=== PATIENT | female | born 1990 | race Caucasian/White ===

== ENCOUNTER → 2016-11-24 | Outpatient (CLI) | payer BC ==
--- NOTE | 2016-11-24 15:17 | US ---
EXAMINATION TYPE: US OB <= 14 wk fetus DATE OF EXAM: 11/24/2016 3:02 PM COMPARISON: NONE CLINICAL HISTORY: O36.5910 SMALL FOR DATES. Patient still nursing and LMP was sometime in August. EXAM PERFORMED: OBTA EXAM MEASUREMENTS: GESTATIONAL AGE / DATING Physician Established: not established Dates by LMP: unknown Dates by First Scan: [employer] Dates by Current Scan for: (12 weeks/2 days) EDC: 06/06/2017 MATERNAL ANATOMY Uterus: 10.9 x 9.5 x 7.7cm,wnl Right Ovary: 2.8 x 2.0 x 2.0cm, wnl Left Ovary:2.5 x 2.6 x 2.0cm, wnl Post CDS / Adnexa: wnl Presence of free fluid: no Presence of corpus luteal cyst: no Presence of subchorionic bleed: no GESTATION / SURVEY CRL: 5.7cm (12 weeks/2 days) MSD: wnl Yolk Sac (normal less than 6mm): not seen Heart Rate: 150 bpm Rhythm: Normal IUP: yes Nuchal Translucency 10-14wks (normal less than 3mm): 1mm Date of LMP: August 2016 Beta HcG (if available): not available IMPRESSION: Viable 12w2d IUP seen and appears wnl
== END | disposition home or self-care (01) ==
LOC: RADUSWWP 14:30
PROVIDERS: ATTEND Obstetrics & Gynecology
DX: O36.5910 Maternal care for other known or suspected poor fetal growth, first trimester, not applicable or unspecified (principal); Z3A.12 12 weeks gestation of pregnancy
CPT/HCPCS: 76801; 76813

== ENCOUNTER 2017-05-29 00:50 | Inpatient (IN) | payer BC ==
[2017-05-29] MEDS ORDERED: OXYTOCIN 10 UNIT/ML 1 ML VIAL IM PRN (02:15)
[2017-05-29] MEDS ORDERED: CARBOPROST TROMETHAMINE 250 MCG/ML 1 ML AMP IM PRN (02:15)
[2017-05-29] MEDS ORDERED: TERBUTALINE 1 MG/ML VIAL SQ PRN (02:15)
[2017-05-29] MEDS ORDERED: METHYLERGONOVINE 0.2 MG/ML 1 ML AMP IM PRN (02:15)
[2017-05-29] MEDS ORDERED: LIDOCAINE 1% (PF) 10 MG/ML (30 ML SDV) SQ PRN (02:15)
[2017-05-29 03:01] VITALS: BMI 31.1
[2017-05-29] MEDS: LACTATED RINGERS 1,000 ML IV SCH ×3 (03:11→20:23)
[2017-05-29 03:12] LABS: Basophils % (A) 0 %; CH 29.5; CHCM 33.9; Eosinophils # (A) 0.2 k/uL (0-0.7); Eosinophils % (A) 1 %; HDW 3.21; HGB 12.6 gm/dL (11.4-16.0); Luc # (Auto) 0.18; Luc % (Auto) 1; Lymphocytes # (A) 1.7 k/uL (1.0-4.8); Lymphocytes % (A) 13 %; MCH 30.6 pg (25.0-35.0); MCHC 34.9 g/dL (31.0-37.0); MCV 87.7 fL (80.0-100.0); Mean Platelet Volume 8.3; Monocytes # (A) 0.5 k/uL (0-1.0); Monocytes % (A) 4 %; Neutrophils # (A) 10.7 k/uL (1.3-7.7); Neutrophils % (A) 81 %; RBC 4.11 m/uL (3.80-5.40); RDW 14.1 % (11.5-15.5); WBC 13.2 k/uL (3.8-10.6)
[2017-05-29] MEDS ORDERED: BUPIVACAINE (PF) 0.25% 30 ML VIAL ONE (03:33)
[2017-05-29] MEDS ORDERED: SODIUM CHLORIDE 0.9% 100 ML BAG ONE (03:33)
[2017-05-29] MEDS ORDERED: fentaNYL (PF) 50 MCG/ML 5 ML AMP ONE (03:33)
--- NOTE | 2017-05-29 06:56 | P.HPOB ---
History of Present Illness H&P Date: 05/29/17 Chief Complaint: Contractions Kuldeep is a very pleasant 2 para 1 at 38-5/7 weeks that presents to labor and delivery with complaints of contractions. She states the contractions started about 9 PM and became stronger at which she presented to OB approximately 1 AM on 811. She denied loss of fluid or vaginal bleeding at that time and she did note good movement blood work revealed a blood type of O+ she was rubella immune her hepatitis B surface antigen was negative her HIV was negative and her group beta strep was negative in addition. Review of Systems Genitourinary: Reports as per HPI Menstruation: Reports as per HPI (Currently ) Past Medical History Past Medical History: No Reported History History of Any Multi-Drug Resistant Organisms: None Reported Past Surgical History: No Surgical Hx Reported Additional Past Surgical History / Comment(s): nose, eye Past Anesthesia/Blood Transfusion Reactions: No Reported Reaction Past Psychological History: No Psychological Hx Reported Smoking Status: Never smoker Past Alcohol Use History: None Reported Past Drug Use History: None Reported - Past Family History Mother Family Medical History: No Reported History Medications and Allergies Home Medications Medication Instructions Recorded Confirmed Type Lyn-Wbzv-Bndmc Acid 1 cap PO DAILY 02/24/16 03/13/16 History [-U Capsule] Allergies Allergy/AdvReac Type Severity Reaction Status Date / Time No Known Allergies Allergy Verified 05/29/17 01:17 Exam Osteopathic Statement: *. No significant issues noted on an osteopathic structural exam other than those noted in the History and Physical/Consult. - Vital Signs Vital signs: Vital Signs Temp Pulse Resp BP Pulse Ox 05/29/17 01:23 96.6 F L 69 18 138/92 97 Intake and Output 05/28/17 05/28/17 05/29/17 14:59 22:59 06:59 Intake Total 1000 Balance 1000 Intake: IV 1000 Lactated Ringers 1,000 ml 1000 @ 125 mls/hr IV .Q8H [facility] Rx#:[id number] Other: Weight 74.843 kg Patient Weight 05/29/17 06:59 Weight 74.843 kg - OBG Physical Exam Abdomen: Gravid and appropriate for gestational age Cervix: On admission her cervix was 5-6 cm per RN Results Result Diagrams: 05/29/17 02:45 Abnormal Lab Results - Last 24 Hours (Table) 05/29/17 Range/Units 02:45 WBC 13.2 H (3.8-10.6) k/uL Neutrophils # 10.7 H (1.3-7.7) k/uL Assessment and Plan (1) Active labor at term Status: Acute Plan: We will admit to labor and delivery for expectant management. Anticipate spontaneous vaginal delivery
[2017-05-29] MEDS ORDERED: ACETAMINOPHEN TAB 325 MG TAB PO PRN (08:33)
[2017-05-29] MEDS ORDERED: diphenhydrAMINE 50 MG/ML 1 ML VIAL IVP PRN ×2 (08:33)
[2017-05-29] MEDS ORDERED: SIMETHICONE 80 MG CHEWABLE PO PRN (08:33)
[2017-05-29] MEDS ORDERED: LANOLIN CREAM 5 GM TUBE TOPICAL PRN (08:33)
[2017-05-29] MEDS ORDERED: HYDROCORTISONE 2.5% RECTAL CREAM 30 GM TUBE RECTAL PRN (08:33)
[2017-05-29] MEDS ORDERED: diphenhydrAMINE 25 MG CAP PO PRN (08:33)
[2017-05-29] MEDS ORDERED: diphenhydrAMINE 50 MG CAP PO PRN (08:33)
[2017-05-29] MEDS ORDERED: WITCH HAZEL 1 EACH MED..PAD TOPICAL PRN (08:33)
[2017-05-29] MEDS ORDERED: BENZOCAINE/MENTHOL SPRAY 1 GM/SPRAY AEROSOL TOPICAL PRN (08:33)
[2017-05-29] MEDS ORDERED: ZOLPIDEM 5 MG TAB PO PRN (08:33)
[2017-05-29] MEDS ORDERED: Acetaminophen-Codeine 300-30mg TAB PO PRN (08:33)
--- NOTE | 2017-05-29 08:40 | P.PROBDLV ---
Vaginal Delivery Note - . Vaginal Delivery Note: Preoperative diagnosis intrauterine at 38 and 5, contractions Post operative diagnosis same Procedure normal spontaneous vaginal delivery, amniotomy, second degree midline laceration repair Surgeon Vandana Hurst D.OBlanca Anesthesia epidural, local with repair EBL less than 300 mL Findings male in occiput anterior position, loose nuchal delivered through, placenta delivered spontaneously without issue Complications none
[2017-05-29] MEDS: IBUPROFEN 600 MG TAB PO PRN ×3 (10:15→23:55)
[2017-05-29] MEDS ORDERED: BUPIVACAINE (PF) 0.25% 25 ML, fentaNYL (PF) 200 MCG in SODIUM CHLORIDE 0.9% 71 ML EPIDURAL ONE (12:48)
[2017-05-29] MEDS: SENNOSIDES-DOCUSATE SODIUM 1 EACH TAB PO SCH (20:12)
[2017-05-30] MEDS: SENNOSIDES-DOCUSATE SODIUM 1 EACH TAB PO SCH (08:28)
--- NOTE | 2017-05-30 08:40 | P.PNOBGVD ---
Subjective - Subjective Principal diagnosis: Status post normal spontaneous vaginal delivery Interval history: Kuldeep 26-year-old G2 now P2 presented to labor and delivery with complaints of contractions early Pedro morning she progressed to 8 cm, necessitating rupture of membranes and had a spontaneous vaginal delivery of a viable baby boy. She is currently day #1 and doing well. She is in bleeding and voiding without difficulty. She is tolerating a regular diet without nausea and vomiting. Her lochia is mild. She is breast-feeding without difficulty. Patient reports: Reports appetite normal, Reports voiding normally, Reports pain well controlled, Reports ambulating normally : doing well, nursing well Objective - Latest Vital Signs Latest vital signs: Vital Signs Temp Pulse Resp BP Pulse Ox 05/30/17 00:00 98.2 F 64 16 128/75 05/29/17 20:00 98.3 F 76 16 121/71 05/29/17 16:00 98.0 F 84 16 124/81 98 05/29/17 12:00 98.1 F 81 16 124/75 05/29/17 10:29 79 16 120/64 05/29/17 09:59 82 16 114/60 05/29/17 09:29 78 16 123/69 05/29/17 09:14 71 16 121/72 05/29/17 08:59 66 16 118/72 05/29/17 08:44 75 16 123/69 - Exam Extremities: Present: normal Abdomen: Present: normal appearance Uterus: Present: firm Assessment and Plan (1) Active labor at term Narrative/Plan: Expect discharge later this morning. Routine discharge instructions will be discussed with Kuldeep at discharge. She is to follow-up in 6 weeks at [facility] with Dr. Chu. Current Visit: No Status: Acute Code(s): [id number] - SNOMED Code(s): 40814420
--- NOTE | 2017-05-30 09:14 | P.DS ---
Providers Date of admission: 05/29/17 02:17 Expected date of discharge: 05/30/17 Attending physician: Janelle Chu Primary care physician: Janelle Chu - Discharge Diagnosis(es) (1) Active labor at term Kuldeep is a very pleasant 26-year-old that presented to labor and delivery on 811 with complaints of contractions on admission she was 5-6 cm and was admitted to labor and delivery. She progressed throughout labor to 8 cm and then her labor pattern stalled and contractions spaced. A meatus amniotomy was performed she progressed to complete and had a normal spontaneous vaginal delivery of a viable male infant. His weight was 8 lbs. 1 oz. at 8:15. Her's of 9 and 9 at one and 5 minutes respectively Current Visit: No Status: Acute Hospital Course: Name is very pleasant 26-year-old now that presented to labor and delivery with complaints of contractions she progressed in labor eventually having artificial rupture of membranes and then spontaneous vaginal delivery of a viable male infant at 8:15 AM. A second-degree midline laceration was noted after delivery this was repaired in usual fashion. Her course has been essentially benign she is doing well on day #1 and wishes to be discharged home. She is involuting and voiding without difficulty she denies complaints or concerns at this time. Patient Condition at Discharge: Good Plan - Discharge Summary New Discharge Prescriptions: No Action Dmy-Nsul-Ricbr Acid [-U Capsule] 1 cap PO DAILY Discharge Medication List Taz-Chuf-Bkgkt Acid [-U Capsule] 1 cap PO DAILY 02/24/16 [ History] Follow up Appointment(s)/Referral(s): Janelle Chu MD [Primary Care Provider] - 6 Weeks Discharge Disposition: HOME SELF-CARE
[2017-05-30] MEDS: IBUPROFEN 600 MG TAB PO PRN (11:22)
[2017-05-30 12:41] VITALS: BP 122/73; PULSE 89; RESP 20; TEMP 97.8
== END 2017-05-30 11:15 | disposition home or self-care (01) | DRG 775 ==
LOC: FBPOP 00:50 → 4FBP 02:17
PROVIDERS: ADMIT Obstetrics & Gynecology Obstetrics; ATTEND Obstetrics & Gynecology
PROC: 10E0XZZ Delivery of Products of Conception, External Approach (ICD-10-PCS; principal; 2017-05-29)
PROC: 0KQM0ZZ Repair Perineum Muscle, Open Approach (ICD-10-PCS; 2017-05-29)
PROC: 00HU33Z Insertion of Infusion Device into Spinal Canal, Percutaneous Approach (ICD-10-PCS; 2017-05-29)
PROC: 3E0R3CZ (ICD-10-PCS; 2017-05-29)
DX: O70.1 Second degree perineal laceration during delivery (principal); Z37.0 Single live birth; Z3A.38 38 weeks gestation of pregnancy; Z79.899 Other long term (current) drug therapy
CPT/HCPCS: 59025; 85025; 88307; 99213

== ENCOUNTER 2018-10-18 01:55 | Inpatient (IN) | payer BC ==
[2018-10-18] MEDS ORDERED: CARBOPROST TROMETHAMINE 250 MCG/ML 1 ML AMP IM PRN (03:27)
[2018-10-18] MEDS ORDERED: LIDOCAINE 1% INJ 10MG/ML (20 ML MDV) SQ PRN (03:27)
[2018-10-18] MEDS ORDERED: METHYLERGONOVINE 0.2 MG/ML 1 ML AMP IM PRN (03:27)
[2018-10-18] MEDS ORDERED: OXYTOCIN 10 UNIT/ML 1 ML VIAL IM PRN (03:27)
[2018-10-18] MEDS ORDERED: TERBUTALINE 1 MG/ML VIAL SQ PRN (03:27)
[2018-10-18 04:00] VITALS: BMI 30.6
[2018-10-18] MEDS: LACTATED RINGERS 1,000 ML IV SCH ×2 (04:02→10:24)
[2018-10-18 04:17] LABS: Basophils % (A) 0 %; Eosinophils # (A) 0.2 k/uL (0-0.7); Eosinophils % (A) 2 %; HCT 34.1 % (34.0-46.0); HGB 11.4 gm/dL (11.4-16.0); Lymphocytes # (A) 1.7 k/uL (1.0-4.8); Lymphocytes % (A) 14 %; MCH 28.8 pg (25.0-35.0); MCHC 33.5 g/dL (31.0-37.0); MCV 86.1 fL (80.0-100.0); Mean Platelet Volume 7.7; Monocytes # (A) 0.5 k/uL (0-1.0); Monocytes % (A) 4 %; Neutrophils # (A) 9.2 k/uL (1.3-7.7); Neutrophils % (A) 79 %; Platelet Count 254 k/uL (150-450); RBC 3.95 m/uL (3.80-5.40); RDW 14.1 % (11.5-15.5); WBC 11.6 k/uL (3.8-10.6)
[2018-10-18 04:22] LABS: Amorphous Sediment,Urine Rare /hpf; Appearance,Urine Clear (Clear); Bacteria,Urine Rare /hpf; Bilirubin,Urine Negative (Negative); Blood,Urine Trace (Negative); Color,Urine Light Yellow; Glucose,Urine (UA) Negative (Negative); Ketones,Urine Negative (Negative); Leukocyte Esterase,Urine Negative (Negative); Nitrite,Urine Negative (Negative); Protein,Urine Negative (Negative); RBC,Urine 6 /hpf (0-5); Specific Gravity,Urine 1.007 (1.001-1.035); Squamous Epithelial Cell,Urine 1 /hpf (0-4); Urobilinogen,Urine <2.0 mg/dL (<2.0); WBC,Urine 1 /hpf (0-5)
[2018-10-18 04:29] LABS: Uric Acid 2.4 mg/dL (3.7-7.4)
[2018-10-18] MEDS ORDERED: ROPIVACAINE 5MG/ML 20ML VIAL ONE (09:27)
[2018-10-18] MEDS ORDERED: SODIUM CHLORIDE 0.9% 100 ML BAG ONE (09:27)
[2018-10-18] MEDS ORDERED: fentaNYL (PF) 50 MCG/ML 5 ML AMP ONE (09:27)
[2018-10-18] MEDS ORDERED: BUTORPHANOL 1 MG/ML 1 ML VIAL IV PRN (09:35)
--- NOTE | 2018-10-18 09:40 | P.HPOB ---
History of Present Illness H&P Date: 10/18/18 Chief Complaint: 38-5/7 weeks, early labor The patient is a 28-year-old 3 para 2 scissors or 2 admitted at 38-5/7 weeks as established by last menstrual period and confirmed by 19 week ultrasound. She is admitted in early labor with some elevated blood pressures as well though they have become relatively normal during labor. Her has been otherwise uncomplicated and group B strep status is negative. On labor and delivery, all signs are reassuring. Obstetrical history: 3 para 2001 with 2 term vaginal deliveries without complications. Current statistics are listed in history of present illness. EDC of 10/27/2018 was established by last menstrual period and confirmed by 19 week ultrasound. Laboratory workup done traits of blood type of O+ with a negative antibody screen. Rubella status is immune. The remainder of the laboratory workup was within normal limits. One hour Glucola was normal and group B strep status is negative. Gynecologic history: Unremarkable with no history of any infections to include STDs. Review of Systems Review of systems is confined to history of present illness. Past Medical History Past Medical History: No Reported History History of Any Multi-Drug Resistant Organisms: None Reported Past Surgical History: No Surgical Hx Reported Additional Past Surgical History / Comment(s): nose, eye Past Anesthesia/Blood Transfusion Reactions: No Reported Reaction Past Psychological History: No Psychological Hx Reported Smoking Status: Never smoker Past Alcohol Use History: None Reported Past Drug Use History: None Reported - Past Family History Mother Family Medical History: No Reported History Medications and Allergies Home Medications Medication Instructions Recorded Confirmed Type Fnp-Ksxt-Oraif Acid 1 cap PO DAILY 02/24/16 10/18/18 History [-U Capsule] Allergies Allergy/AdvReac Type Severity Reaction Status Date / Time No Known Allergies Allergy Verified 10/18/18 01:58 Exam Vital Signs Temp Pulse Resp BP Pulse Ox 10/18/18 03:34 97 F L 88 16 132/86 99 10/18/18 03:17 97 F L 78 16 150/79 99 Intake and Output 10/17/18 10/18/18 10/18/18 22:59 06:59 14:59 Other: # Voids 1 Weight 73.482 kg In general, this is a well-developed, well-nourished white female in no acute distress. Her heart has a regular rhythm and rate without murmur. Her lungs are clear to auscultation bilaterally in all edmondson. Her abdomen is gravid, nondistended, has normal active bowel sounds, is soft, nontender, and without any palpable masses aside from the uterine fundus. Her extremities are without any cyanosis, clubbing, or edema and are nontender to palpation bilaterally. Digital cervical examination and straight discharged to be 5 cm dilated, 80% effaced, the vertex in presentation at -1-2 station. Artificial rupture of membranes is carried out demonstrating clear fluid. Results Result Diagrams: 10/18/18 03:55 Abnormal Lab Results - Last 24 Hours (Table) 10/18/18 10/18/18 10/18/18 Range/Units 03:30 03:55 03:55 WBC 11.6 H (3.8-10.6) k/uL Neutrophils # 9.2 H (1.3-7.7) k/uL Uric Acid 2.4 L (3.7-7.4) mg/dL Urine Blood Trace H (Negative) Urine RBC 6 H (0-5) /hpf Amorphous Sediment Rare H (None) /hpf Urine Bacteria Rare H (None) /hpf Assessment and Plan (1) induced hypertension Current Visit: Yes Status: Acute Code(s): O13.9 - GESTATIONAL HTN W/O SIGNIFICANT PROTEINURIA, UNSP TRIMESTER SNOMED Code(s): 72991994 (2) Active labor at term Current Visit: Yes Status: Acute Code(s): [id number] - SNOMED Code(s): 70274925 Plan: The patient has been admitted for active management of labor. Artificial rupture of membranes has been carried out for clear fluid. Given her relatively sparse contraction pattern, we have opted to proceed with placement of an epidural catheter at her request followed by Pitocin augmentation. She will continue to have close maternal and surveillance and expectant management will be practiced.
[2018-10-18] MEDS ORDERED: ROPIVACAINE 100 MG, fentaNYL (PF) 200 MCG in SODIUM CHLORIDE 0.9% 76 ML EPIDURAL ONE (09:55)
[2018-10-18] MEDS ORDERED: HYDROCORTISONE 2.5% RECTAL CREAM 30 GM TUBE RECTAL PRN (15:16)
[2018-10-18] MEDS ORDERED: HYDROcodone/APAP 7.5-325MG 1 EACH TAB PO PRN (15:16)
[2018-10-18] MEDS ORDERED: WITCH HAZEL 1 EACH MED..PAD TOPICAL PRN (15:16)
[2018-10-18] MEDS ORDERED: diphenhydrAMINE 50 MG/ML 1 ML VIAL IVP PRN ×2 (15:16)
[2018-10-18] MEDS ORDERED: ZOLPIDEM 5 MG TAB PO PRN (15:16)
[2018-10-18] MEDS ORDERED: HYDROcodone/APAP 5-325MG 1 EACH TAB PO PRN (15:16)
[2018-10-18] MEDS ORDERED: diphenhydrAMINE 25 MG CAP PO PRN (15:16)
[2018-10-18] MEDS ORDERED: diphenhydrAMINE 50 MG CAP PO PRN (15:16)
[2018-10-18] MEDS ORDERED: SIMETHICONE 80 MG CHEWABLE PO PRN (15:16)
[2018-10-18] MEDS ORDERED: BENZOCAINE/MENTHOL SPRAY 1 GM/SPRAY AEROSOL TOPICAL PRN (15:16)
[2018-10-18] MEDS ORDERED: LANOLIN CREAM 5 GM TUBE TOPICAL PRN (15:16)
--- NOTE | 2018-10-18 15:20 | P.PROBDLV ---
Vaginal Delivery Note - . Vaginal Delivery Note: The patient is a 28-year-old 3 para 2001 admitted at 38-5/7 weeks by good dating parameters. She is admitted in early labor with all signs reassuring aside from some elevated and initial blood pressures. Blood pressures normalized on labor and delivery of a while in labor. She underwent artificial rupture of membranes demonstrating clear fluid. She then had an epidural catheter placed for analgesia and had Pitocin augmentation started. She made good progress through the active phase of labor to complete and then pushed over the course of approximately 2-3 contractions to a normal spontaneous vaginal delivery of a viable 7 lbs. 15 oz. baby girl with Apgars of 8 at 1 minute and 9 at 5 minutes delivered in the direct occiput anterior position. There was a loose nuchal cord 1 which was reduced following delivery of the infant. The placenta was delivered spontaneously, intact, and grossly normal with a grossly normal centrally inserted three-vessel cord. There was a second-degree midline perineal laceration over the site of previous lacerations which was repaired in standard fashion using 3-0 chromic catgut without difficulty. Estimated blood loss for the case was approximately 300 mL. There are no complications. All sponge, instrument, and needle counts were correct. Both mother and infant are resting comfortably in recovery.
[2018-10-18] MEDS ORDERED: OXYTOCIN 20 UNITS/1000 ML NS 1,000 ML IV SCH (15:30)
[2018-10-18] MEDS: IBUPROFEN 600 MG TAB PO PRN (19:57)
[2018-10-18] MEDS: SENNOSIDES-DOCUSATE SODIUM 1 EACH TAB PO SCH (20:04)
[2018-10-19] MEDS: ACETAMINOPHEN TAB 325 MG TAB PO PRN ×2 (01:18→09:26)
[2018-10-19] MEDS: LACTATED RINGERS 1,000 ML IV SCH (02:35)
[2018-10-19] MEDS: IBUPROFEN 600 MG TAB PO PRN ×2 (06:30→14:28)
[2018-10-19] MEDS: SENNOSIDES-DOCUSATE SODIUM 1 EACH TAB PO SCH (09:23)
--- NOTE | 2018-10-19 10:23 | P.DS ---
Providers Date of admission: 10/18/18 03:27 Expected date of discharge: 10/19/18 Attending physician: Maurisio Thomas Primary care physician: Stated None Hospital Course: This is a 28-year-old white female 3 para 2002 EDC 10/27/2018 38-5/7 weeks' gestation. Patient presented in early spontaneous labor. Initial blood pressures were slightly elevated and patient did complain of a mild headache. All [facility] labs were checked and were within normal limits. otherwise unremarkable, blood type O positive, rubella status immune, group B strep cultures negative. Please see my dictated history and physical for details. Artificial amniorrhexis revealed clear fluid. Patient went on to deliver a liveborn female with scores of 8 and 9 at one and 5 minutes respectively. She did request and receive an epidural. Delivery was unremarkable, estimated blood loss 300 mL, small second-degree perineal laceration easily repaired. Infant weighed 7 lbs. 15 oz. or 12/22/2004 grams. Please see dictated delivery note for details. This morning the patient is doing well. She is voiding, ambulating and passing flatus without difficulty. Vital signs are stable and she is afebrile. Breast- feeding is going well. Breasts are not engorged. Perineal body is clean and dry. Fundus is firm and in the midline, symmetric and 18 week size. [employer] infant is doing well. Patient is being discharged home therefore in very good condition. She will follow-up in the office in 6 weeks. She is reminded no intercourse, tampons or douching. She will use [id number]-[id number] Advil or Aleve, or Motrin products as needed for pain. I've asked her to call with any fevers shakes or chills, foul smelling or copious lochia, with the passage of large blood clots, with any pain not alleviated by ezhb-nog-nusqrui products, or indeed with any concerns. Contraceptive options have been briefly reviewed and she will discuss this further with her primary ground defence officer. Patient Condition at Discharge: Good Plan - Discharge Summary New Discharge Prescriptions: No Action Wnk-Uzzt-Bydqb Acid [-U Capsule] 1 cap PO DAILY Discharge Medication List Gwt-Rlxf-Ibbpc Acid [-U Capsule] 1 cap PO DAILY 02/24/16 [ History] Follow up Appointment(s)/Referral(s): Maurisio Thomas MD [STAFF PHYSICIAN] - 6 Weeks Discharge Disposition: HOME SELF-CARE
[2018-10-19 11:36] VITALS: BP 134/87; PULSE 73; RESP 18; TEMP 97.8
== END 2018-10-19 15:40 | disposition home or self-care (01) | DRG 807 ==
LOC: FBPOP 01:55 → 4FBP 03:27
PROVIDERS: ADMIT Obstetrics & Gynecology; ATTEND Obstetrics & Gynecology
PROC: 10E0XZZ Delivery of Products of Conception, External Approach (ICD-10-PCS; principal; 2018-10-18)
PROC: 0KQM0ZZ Repair Perineum Muscle, Open Approach (ICD-10-PCS; 2018-10-18)
PROC: 00HU33Z Insertion of Infusion Device into Spinal Canal, Percutaneous Approach (ICD-10-PCS; 2018-10-18)
PROC: 3E0R3BZ Introduction of Anesthetic Agent into Spinal Canal, Percutaneous Approach (ICD-10-PCS; 2018-10-18)
DX: O13.4 Gestational [pregnancy-induced] hypertension without significant proteinuria, complicating childbirth (principal); Z37.0 Single live birth; O69.81X0 Labor and delivery complicated by cord around neck, without compression, not applicable or unspecified; O70.1 Second degree perineal laceration during delivery; O99.62 Diseases of the digestive system complicating childbirth; K21.9 Gastro-esophageal reflux disease without esophagitis; Z3A.38 38 weeks gestation of pregnancy
CPT/HCPCS: 59025; 81001; 84450; 84460; 84550; 85025; 86850; 86900; 86901; 99213

== ENCOUNTER 2020-09-12 19:32 | Outpatient (CLI) | payer BC, OTHER ==
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
[2020-09-12] MEDS: LACTATED RINGERS 1,000 ML IV SCH ×2 (20:35→21:16)
[2020-09-12 20:48] VITALS: BP 136/81; PULSE 58; RESP 16; TEMP 96.6
== END 2020-09-12 23:47 | disposition home or self-care (01) ==
LOC: FBPOP 19:32
PROVIDERS: ATTEND Obstetrics & Gynecology
DX: O26.893 Other specified pregnancy related conditions, third trimester (principal); T14.90XA Injury, unspecified, initial encounter; Z3A.34 34 weeks gestation of pregnancy
CPT/HCPCS: 59025; 96360; 96361; 99214

== ENCOUNTER 2020-09-23 19:43 | Outpatient (CLI) | payer BC, OTHER ==
[2020-09-23 21:07] LABS: Basophils % (A) 0 %; Eosinophils # (A) 0.2 k/uL (0-0.7); Eosinophils % (A) 1 %; HCT 41.1 % (34.0-46.0); HGB 13.3 gm/dL (11.4-16.0); Lymphocytes # (A) 1.4 k/uL (1.0-4.8); Lymphocytes % (A) 12 %; MCH 29.9 pg (25.0-35.0); MCHC 32.3 g/dL (31.0-37.0); MCV 92.7 fL (80.0-100.0); Mean Platelet Volume 7.9; Monocytes # (A) 0.4 k/uL (0-1.0); Monocytes % (A) 4 %; Neutrophils # (A) 9.3 k/uL (1.3-7.7); Neutrophils % (A) 82 %; Platelet Count 253 k/uL (150-450); RBC 4.44 m/uL (3.80-5.40); RDW 13.4 % (11.5-15.5); WBC 11.4 k/uL (3.8-10.6)
[2020-09-23 21:22] LABS: Uric Acid 1.9 mg/dL (3.7-7.4)
[2020-09-23 21:43] VITALS: BP 121/80; PULSE 75; RESP 16; TEMP 98.5
--- NOTE | 2020-11-29 07:56 | P.MSEPDOC ---
Presenting Problems - Arrival Data Date of Arrival on Unit: 09/23/20 Time of Arrival on Unit: 19:43 Mode of Transport: Ambulatory - Complaint OB-Reason for Admission/Chief Complaint: Possible Onset of Labor Comment: Patient presents to triage with contractions that started around 1600 this. afternoon, states they are about 3-4 minutes apart now. States she did have intercourse. around 1600. Patient denies leaking of fluid or vaginal bleeding, reports positive. movement. Medical History - Information : 4 Para: 3 Term: 3 : 0 Abortions: Spontaneous or Elective: 0 Number of Living Children: 3 - Gestational Age Gestational Age by BERRY (wks/days): 36 Weeks and 0 Days Review of Systems - Review of Systems Constitutional: No problems Breast: No problems ENT: No problems Cardiovascular: No problems Respiratory: No problems Gastrointestinal: No problems Genitourinary: No problems Musculoskeletal: No problems Neurological: No problems Skin: No problems Vital Signs - Temperature Temperature: 98.5 F Temperature Source: Temporal Artery Scan - Pulse Right Brachial Pulse Rate: 75 Pulse Assessment Method: Automatic Cuff - Respirations Respiratory Rate: 16 Oxygen Delivery Method: Room Air - Blood Pressure Right Arm Blood Pressure: 121/80 Blood Pressure Mean: 93 Blood Pressure Source: Automatic Cuff Medical Screen Scoring (Pre) - Cervical Exam Dilation: 1-3 cm = 1 Effacement: More than 50% = 2 Membranes: Intact - Uterine Contractions Frequency: > 5 minutes apart = 1 Duration: N/A Intensity: N/A - Maternal Vital Signs Maternal Temperature: N/A Maternal Blood Pressure: N/A Signs of Preeclampsia: N/A Maternal Respirations: N/A - Maternal Trauma Maternal Trauma: N/A - Assessment - Baby A Baseline FHR: 135 Heart Rate - NICHD Category: Category I (Normal) = 0 NST: Reactive Position: N/A Station: N/A - Total Score - Baby A Total Score - Baby A: 4 - Total Score - Baby B Total Score - Baby B: 4 - Total Score - Baby C Total Score - Baby C: 4 - Level of Risk - Baby A Level of Risk - Baby A: Low (0-5) - Level of Risk - Baby B Level of Risk - Baby B: Low (0-5) - Level of Risk - Baby C Level of Risk - Baby C: Low (0-5) Physician Notification (Pre) - Physician Notified Physician Notified Date: 09/23/20 Physician Notified Time: 21:15 New Order Received: Yes - Notification Comment Comment: RN reported that heart tones were catergory 1. Cervical exam was. unchanged. Patient reports feeling more comfortable. Patient instructed to go home,. drink water and rest, and pelvic rest until her Dr. visit on Thursday. Patient. verbalized understanding and is in agreement with plan of care. Disposition - Disposition OB Disposition: Admit, Physician follow up in office Discharge Date: 09/23/20 Discharge Time: 21:40 I agree with the RN Medical Screening Exam: Yes Case reviewed; plan agreed upon as documented in EMR&OBIX.: Yes Comments: Patient was neither seen nor examined by me. Diagnosis: FALSE LABOR BEFORE 37 COMPLETED WEEKS OF GEST, THIRD TRI
== END 2020-09-23 21:40 | disposition home or self-care (01) ==
LOC: FBPOP 19:43
PROVIDERS: ATTEND Obstetrics & Gynecology
DX: O47.03 False labor before 37 completed weeks of gestation, third trimester (principal); Z3A.36 36 weeks gestation of pregnancy
CPT/HCPCS: 84450; 84460; 84550; 85025

== ENCOUNTER 2020-10-10 07:19 | Inpatient (IN) | payer BC, OTHER ==
[2020-10-10] MEDS ORDERED: OXYTOCIN 10 UNIT/ML 1 ML VIAL IM PRN (08:19)
[2020-10-10] MEDS ORDERED: LIDOCAINE 0.5% (PF) 5 MG/ML (50 ML SDV) SQ PRN (08:19)
[2020-10-10] MEDS ORDERED: METHYLERGONOVINE 0.2 MG/ML 1 ML AMP IM PRN (08:19)
[2020-10-10] MEDS ORDERED: CARBOPROST TROMETHAMINE 250 MCG/ML 1 ML AMP IM PRN (08:19)
[2020-10-10] MEDS ORDERED: TERBUTALINE 1 MG/ML VIAL SQ PRN (08:19)
[2020-10-10] MEDS ORDERED: OXYTOCIN 30 UNITS/500 ML NS 30 UNIT in SALINE 1 500ML.BAG IV SCH (08:30)
[2020-10-10 08:34] LABS: Basophils % (A) 0 %; Eosinophils # (A) 0.1 k/uL (0-0.7); Eosinophils % (A) 1 %; HCT 40.7 % (34.0-46.0); HGB 14.2 gm/dL (11.4-16.0); Lymphocytes # (A) 1.1 k/uL (1.0-4.8); Lymphocytes % (A) 13 %; MCH 31.6 pg (25.0-35.0); MCHC 34.9 g/dL (31.0-37.0); MCV 90.6 fL (80.0-100.0); Mean Platelet Volume 7.5; Monocytes # (A) 0.3 k/uL (0-1.0); Monocytes % (A) 4 %; Neutrophils # (A) 7.1 k/uL (1.3-7.7); Neutrophils % (A) 82 %; Platelet Count 239 k/uL (150-450); RDW 13.1 % (11.5-15.5); WBC 8.7 k/uL (3.8-10.6)
[2020-10-10] MEDS ORDERED: BUTORPHANOL 1 MG/ML 1 ML VIAL IV PRN (08:46)
--- NOTE | 2020-10-10 08:46 | P.HPOB ---
History of Present Illness H&P Date: 10/10/20 Chief Complaint: 38+ weeks, spontaneous rupture of membranes, early labor The patient is a 30-year-old 4 para 3003 who presents at 38+ weeks as established by an 8 week ultrasound. She is admitted with documented spontaneous rupture of membranes for clear fluid. She has had an uncomplicated and group B strep status is negative. She did decline one hour Glucola testing and has never been a diabetic and any of previous pregnancies and therefore was not treated as such. Obstetrical history: 4 para 3003 with 3 term vaginal deliveries without complications. Current statistics are listed in history present illness. EDC of 10/21/2020 was established by an 8 week ultrasound. Laboratory workup demonstrates a blood type of O+ with a negative antibody screen. Rubella status is immune. Remainder of the laboratory workup was within normal limits. As noted above, 1 hour Glucola was declined by the patient and group B strep status is negative. Gynecologic history: Unremarkable with no history of any infections to include STDs. Review of Systems Review of systems is confined to history of present illness. Past Medical History Past Medical History: No Reported History History of Any Multi-Drug Resistant Organisms: None Reported Past Surgical History: No Surgical Hx Reported Additional Past Surgical History / Comment(s): nose, lasik surgery Past Anesthesia/Blood Transfusion Reactions: No Reported Reaction Past Psychological History: No Psychological Hx Reported Smoking Status: Former smoker Past Alcohol Use History: None Reported Past Drug Use History: None Reported - Past Family History Mother Family Medical History: No Reported History Medications and Allergies Home Medications Medication Instructions Recorded Confirmed Type Twe-Jwuj-Zdfub Acid 1 cap PO DAILY 02/24/16 10/10/20 History [-U Capsule] Allergies Allergy/AdvReac Type Severity Reaction Status Date / Time No Known Allergies Allergy Verified 10/10/20 07:26 Exam Vital Signs Temp Pulse Resp BP 10/10/20 07:52 97.9 F 75 17 122/79 Intake and Output 10/09/20 10/10/20 10/10/20 22:59 06:59 14:59 Other: Weight 67.132 kg In general, this is a well-developed, well-nourished white female in no acute distress. Her heart has a regular rhythm and rate without murmur. Her lungs clear to auscultation bilaterally in all edmondson. Her abdomen is gravid, nondistended, has normal active bowel sounds, soft, nontender, and without any palpable masses aside from uterine fundus. Her extremities are without any cyanosis, clubbing, or significant edema and are nontender to palpation bilaterally. Digital cervical examination demonstrates her cervix to be 4+ centimeters dilated, 70% effaced, the vertex in presentation at -2 station. Artificial rupture of membranes is carried out of for the bag of water the head of the presenting part though she does have documented spontaneous rupture of membranes. Results Result Diagrams: 10/10/20 08:05 Assessment and Plan (1) Spontaneous rupture of amniotic membranes Current Visit: Yes Status: Acute Code(s): EFQ8823 - SNOMED Code(s): 444836684 (2) Active labor at term Current Visit: Yes Status: Acute Code(s): MQT8446 - SNOMED Code(s): 17203075 Plan: The patient is admitted for active management of labor. She will have close maternal and surveillance and expectant management will be practiced. She has requested as much nonintervention as possible though she is still a good candidate for either IV or epidural analgesia, whichever she may choose. Would anticipate normal spontaneous vaginal delivery in the not too distant future.
[2020-10-10] MEDS ORDERED: SODIUM CHLORIDE 0.9% 100 ML BAG ONE (11:30)
[2020-10-10] MEDS ORDERED: fentaNYL (PF) 50 MCG/ML 5 ML AMP ONE (11:30)
[2020-10-10] MEDS ORDERED: ROPIVACAINE 5MG/ML 20ML VIAL ONE (11:30)
[2020-10-10] MEDS: LACTATED RINGERS 1,000 ML IV SCH ×2 (13:52→20:38)
[2020-10-10] MEDS ORDERED: ZOLPIDEM 5 MG TAB PO PRN (15:21)
[2020-10-10] MEDS ORDERED: LANOLIN CREAM 5 GM TUBE TOPICAL PRN (15:21)
[2020-10-10] MEDS ORDERED: BENZOCAINE/MENTHOL SPRAY 1 GM/SPRAY AEROSOL TOPICAL PRN (15:21)
[2020-10-10] MEDS ORDERED: diphenhydrAMINE 25 MG CAP PO PRN (15:21)
[2020-10-10] MEDS ORDERED: HYDROcodone/APAP 5-325MG 1 EACH TAB PO PRN (15:21)
[2020-10-10] MEDS ORDERED: diphenhydrAMINE 50 MG CAP PO PRN (15:21)
[2020-10-10] MEDS ORDERED: HYDROcodone/APAP 7.5-325MG 1 EACH TAB PO PRN (15:21)
[2020-10-10] MEDS ORDERED: HYDROCORTISONE 2.5% RECTAL CREAM 30 GM TUBE RECTAL PRN (15:21)
[2020-10-10] MEDS ORDERED: diphenhydrAMINE 50 MG/ML 1 ML VIAL IVP PRN ×2 (15:21)
[2020-10-10] MEDS ORDERED: SIMETHICONE 80 MG CHEWABLE PO PRN (15:21)
--- NOTE | 2020-10-10 15:25 | P.PROBDLV ---
Vaginal Delivery Note - . Vaginal Delivery Note: The patient is a 30-year-old 4 para 3003 admitted at 38+ weeks by good dating parameters with documented spontaneous rupture of membranes of clear fluid. Her has been uncomplicated and group B strep status is negative. On labor and delivery, she did have artificial rupture of membranes had of the presenting vertex. This demonstrated again fairly copious clear fluid. She progressed through the latent phase of labor and had an upper catheter placed for analgesia. She continued to progress steadily to complete and +2 station. She pushed over the course of 1 contraction to a normal spontaneous vaginal delivery of a viable 7 lbs. 5 oz. baby boy with Apgars of 9 at 1 minute and 10 at 5 minutes delivered in the direct occiput anterior position. The placenta was delivered spontaneously, intact, and grossly normal with a grossly normal three-vessel cord inserted approximately 5 cm from margin of the placental disc. There was a second-degree midline perineal laceration over the site of previous lacerations which was repaired in standard fashion using 3-0 chromic catgut without difficulty. Estimated blood loss for the case was approximate 200 mL. There are no complications. All sponge, instrument, needle counts were correct. Both mother and infant are resting comfortably in recovery.
[2020-10-10] MEDS ORDERED: OXYTOCIN 20 UNITS/1000 ML NS 1,000 ML IV SCH (15:30)
[2020-10-10] MEDS: IBUPROFEN 600 MG TAB PO PRN (20:38)
[2020-10-10] MEDS: SENNOSIDES-DOCUSATE SODIUM 1 EACH TAB PO SCH (20:38)
[2020-10-11] MEDS: ACETAMINOPHEN TAB 325 MG TAB PO PRN ×2 (01:07→15:05)
[2020-10-11] MEDS: IBUPROFEN 600 MG TAB PO PRN ×2 (04:32→11:04)
[2020-10-11] MEDS: SENNOSIDES-DOCUSATE SODIUM 1 EACH TAB PO SCH (08:55)
[2020-10-11 09:20] VITALS: BP 120/70; PULSE 63; RESP 16; TEMP 98.2
--- NOTE | 2020-10-11 10:56 | P.DS ---
Providers Date of admission: 10/10/20 07:41 Expected date of discharge: 10/11/20 Attending physician: Maurisio Thomas Primary care physician: Stated None - Discharge Diagnosis(es) (1) Spontaneous rupture of amniotic membranes Current Visit: Yes Status: Acute (2) Active labor at term Current Visit: Yes Status: Acute (3) Normal vaginal delivery Current Visit: Yes Status: Acute Hospital Course: The patient is a 30-year-old 4 para 3003 presents at 38+ weeks by good dating parameters. She is admitted with documented spontaneous rupture of membranes for noting clear fluid. Her was uncomplicated and group B strep status is negative. On labor and delivery, she declined any interventions aside from artificial rupture of membranes over the head of the presenting vertex. This again demonstrated clear fluid. She then progressed into the active phase of labor and had an epidural catheter placed for analgesia. She then again continued to progress rather slowly of but ultimately to complete and +2 station at which time she pushed to a normal spontaneous vaginal delivery of a viable 7 lbs. 5 oz. baby boy with Apgars of 9 at 1 minute and 10 at 5 minutes. Her course was unremarkable vital signs being stable and her temperature was afebrile throughout. She was deemed stable for discharge on day 1 and was discharged home to follow-up in the office in 6 weeks routinely. Discharge instructions included calling for any significantly increased bleeding or foul-smelling lochia, significantly increased fever or abdominal pain, perineal complaints, breast complaints, or anything else that concerned her. She is additionally instructed to have nothing in the vagina for at least 6 weeks time to include intercourse. She understood her instructions and agrees follow up as noted above. Discharge medications included and tinea vitamins as she has opted to breast-feed. She was otherwise she is [id number] analgesic pain medications as needed. Maternal blood type is O+ and rubella status is immune. Procedures: #1. Epidural analgesia #2. Spontaneous vaginal delivery #3. Repair of perineal laceration Patient Condition at Discharge: Stable Plan - Discharge Summary New Discharge Prescriptions: No Action Uet-Xatu-Ousio Acid [-U Capsule] 1 cap PO DAILY Discharge Medication List Ojk-Euet-Djxuv Acid [-U Capsule] 1 cap PO DAILY 02/24/16 [History] Follow up Appointment(s)/Referral(s): Maurisio Thomas MD [STAFF PHYSICIAN] - 6 Weeks Discharge Disposition: HOME SELF-CARE
== END 2020-10-11 15:50 | disposition home or self-care (01) | DRG 807 ==
LOC: FBPOP 07:19 → 4FBP 07:41
PROVIDERS: ADMIT Obstetrics & Gynecology; ATTEND Obstetrics & Gynecology
PROC: 0KQM0ZZ Repair Perineum Muscle, Open Approach (ICD-10-PCS; principal; 2020-10-10)
PROC: 10E0XZZ Delivery of Products of Conception, External Approach (ICD-10-PCS; principal; 2020-10-10)
PROC: 3E0R3BZ Introduction of Anesthetic Agent into Spinal Canal, Percutaneous Approach (ICD-10-PCS; principal; 2020-10-10)
PROC: 00HU33Z Insertion of Infusion Device into Spinal Canal, Percutaneous Approach (ICD-10-PCS; principal; 2020-10-10)
DX: O70.1 Second degree perineal laceration during delivery (principal); Z37.0 Single live birth; Z3A.38 38 weeks gestation of pregnancy; Z87.891 Personal history of nicotine dependence
CPT/HCPCS: 59025; 84112; 85025; 86850; 86900; 86901; 99213

== ENCOUNTER 2024-03-08 19:13 | Outpatient (CLI) | payer BC, OTHER ==
[2024-03-08] MEDS: LIDOCAINE 0.5% (PF) 5 MG/ML (50 ML SDV) SQ PRN (20:20)
--- NOTE | 2024-03-08 20:54 | P.OBCN ---
History of Present Illness Consult date: 03/08/24 Reason for consult: other (second degree laceration after home delivery) Chief complaint: perineal laceration History of present illness: Ms. Soliman is a 33 year old now PPD#0 s/p normal vaginal delivery at home at 1610 today. She was 40 weeks and 3 days today with EDC of 03/05/2024 by LMP consist with 5 week US at [facility]. She has not received care this because [facility] was not accepting new patient at the time and midwives in the area did not have any openings either. She states the delivery was uncomplicated aside from the fact that she believes she has a second degree laceration. Vaginal bleeding has been light since the delivery. Past medical history: None Past surgical history: None Medications: PNVs Social History: No smoking, drinking, or drug use during the OBGYN history: 6 vaginal deliveries (1 of twins) Past Medical History Past Medical History: No Reported History History of Any Multi-Drug Resistant Organisms: None Reported Past Surgical History: No Surgical Hx Reported Additional Past Surgical History / Comment(s): nose, lasik surgery Past Anesthesia/Blood Transfusion Reactions: No Reported Reaction Smoking Status: Never smoker - Past Family History Mother Family Medical History: No Reported History Medications and Allergies Allergies Allergy/AdvReac Type Severity Reaction Status Date / Time No Known Allergies Allergy Verified 10/10/20 07:26 Exam Intake and Output 03/08/24 03/08/24 03/08/24 06:59 14:59 22:59 Other: Weight 69.4 kg His physical exam is performed. This is a healthy-appearing female in no apparent distress. Breathing is nonlabored. Fundus is firm and below the umbilicus. Vaginal bleeding is minimal. A second-degree laceration is appreciated. Extremities are nontender and nonedematous. Assessment and Plan Assessment: 33 year old now POD#0 s/p at home who presents for repair for second degree laceration Plan: Second degree laceration repaired. Please see procedure note. Patient does not plan to stay in the hospital. Patient encouraged to follow up with ceramic tile installer in 1-2 days and make a appointment in 6 weeks. Time with Patient: Greater than 30 (35 minutes)
--- NOTE | 2024-03-08 20:56 | P.PCN ---
Date of Procedure: 03/08/24 Preoperative Diagnosis: second degree perineal laceration Postoperative Diagnosis: Same Procedure(s) Performed: Repair of second degree perineal laceration Implants: None Anesthesia: local Surgeon: Delia Melgoza Estimated Blood Loss (ml): 5 IV fluids (ml): 0 Urine output (ml): 0 Pathology: none sent Condition: stable Disposition: same day Indications for Procedure: The patient is a 33 year old now POD#0 s/p at home who presents for second degree laceration repair Operative Findings: Second degree laceration Description of Procedure: The perineum is infiltrated with lidocaine. The second degree laceration is repaired with 2-0 Vicryl in the usual fashion. Patient tolerated the procedure well. Excellent hemostasis is noted.
--- NOTE | 2024-03-10 20:55 | P.MSEPDOC ---
Presenting Problems - Arrival Data Date of Arrival on Unit: 03/08/24 Time of Arrival on Unit: 19:13 Mode of Transport: Wheelchair - Complaint OB-Reason for Admission/Chief Complaint: Other Comment: Sutures after home delivery Medical History - Information : 6 Para: 7 Term: 7 : 0 Abortions: Spontaneous or Elective: 0 Number of Living Children: 7 - Gestational Age Gestational Age by BERRY (wks/days): 40 Weeks and 0 Days - History Complications: No Care Review of Systems - Review of Systems Constitutional: No problems Breast: No problems ENT: No problems Cardiovascular: No problems Respiratory: No problems Gastrointestinal: No problems Genitourinary: No problems Musculoskeletal: No problems Neurological: No problems Skin: No problems Physician Notification - Physician Notified Physician Notified Date: 03/08/24 Physician Notified Time: 19:48 Physician: Delia Melgoza - Notification Comment Comment: Dr Melgoza in house agrees to examine pt and stich her if needed. Maternal Triage Index - Maternal Triage Index Presenting for scheduled procedure w/no complaint: No - Stat/Priority 1 Stat Priority 1: No - Urgent/Priority 2 Urgent Priority 2: No - Prompt/Priority 3 Prompt Priority 3: No - Non-Urgent/Priority 4 Non-Urgent Priority 4: Yes Criteria Met for Priority 4: Pt presents to triage for sutures after having a home delivery today. Disposition - Disposition OB Disposition: Discharge to home Discharge Date: 03/08/24 Discharge Time: 20:48 I agree with the RN Medical Screening Exam: Yes Case reviewed; plan agreed upon as documented in EMR&OBIX.: Yes Diagnosis: MATERNAL CARE FOR PROBLEM, UNSP, THIRD * DO NOT USE *
== END 2024-03-08 20:50 | disposition home or self-care (01) ==
LOC: FBPOP 19:13
PROVIDERS: ATTEND Obstetrics & Gynecology
DX: O70.1 Second degree perineal laceration during delivery (principal); Z3A.40 40 weeks gestation of pregnancy
CPT/HCPCS: 99213; 96372; J2001